=== PATIENT | female | born 1990 | race Caucasian/White ===

== ENCOUNTER 2016-12-14 09:23 | Emergency (ER) | payer OTHER ==
[2016-12-14 10:28] VITALS: BP 118/78
--- NOTE | 2016-12-14 11:45 | UC ---
Abdominal Pain Female HPI - HPI Summary HPI Summary: PT HERE WITH 5 DAYS OF VOLUMINOUS(10-20/DAYS), MALODOROUS, WATERY DIARRHEA FOR 6 DAYS. PT ALSO REPORTS MYALGIAS, DIFFUSE ABD CRAMPING, FATIGUE AND VOMITING X 3 THAT HAPPENED LAST NIGHT. SX STARTED 3 DAYS AFTER FINISHING A COURSE OF KEFLEX FOR AN ABSCESS. PT DENIES RECENT TRAVEL, CAMPING, EXPOSURE TO FARM ANIMALS, REPTILIAN PETS OR WELL WATER. - History of Current Complaint Chief Complaint: UCGeneralIllness Stated Complaint: STOMACH ACHE Time Seen by Provider: 12/14/16 11:09 Hx Obtained From: Patient Hx Last Menstrual Period: 12/12/16 Onset/Duration: Sudden Onset, Lasting Days - 6, Still Present Severity Initially: Moderate Severity Currently: Moderate Pain Intensity: 5 Location: Diffuse - WORST IN THE SUPRAPUBIC AND LLQ Radiates: No Character: Cramping Aggravating Factor(s): Food Alleviating Factor(s): Nothing Associated Signs and Symptoms: Positive: Back Pain - ACHY, Nausea - NONE CURRENTLY, Vomiting - LAST NIGHT, Diarrhea. Negative: Diaphoresis, Fever, Cough , Chest Pain, Dizzy, Constipation, Blood in Stool, Urinary Symptoms, Decreased Appetite, Vaginal Bleeding, Vaginal Discharge Allergies/Adverse Reactions: Allergies Allergy/AdvReac Type Severity Reaction Status Date / Time No Known Allergies Allergy Verified 09/17/16 13:05 PMH/Surg Hx/FS Hx/Imm Hx Endocrine History Of: Reports: Thyroid Disease, Hypothyroidism - Surgical History Surgical History: Yes Surgery Procedure, Year, and Place: tubal occlusion - Family History Known Family History: Positive: Cardiac Disease, Hypertension, Diabetes, Other - THYROID - Social History Alcohol Use: None Substance Use Type: None Smoking Status (MU): Light Every Day Tobacco Smoker Type: Cigarettes Length of Time of Smoking/Using Tobacco: age 18 Review of Systems Constitutional: Fatigue Skin: Negative Eyes: Negative ENT: Negative Respiratory: Negative Cardiovascular: Negative Gastrointestinal: Abdominal Pain - DIFFUSE CRAMPING, Vomiting, Diarrhea Genitourinary: Negative Motor: Negative Neurovascular: Negative Musculoskeletal: Negative Neurological: Headache - MILD Psychological: Negative All Other Systems Reviewed And Are Negative: Yes Physical Exam Triage Information Reviewed: Yes Appearance: Well-Appearing, No Pain Distress, Well-Nourished Vital Signs: Initial Vital Signs Temp 99.5 F 02/02/17 10:22 Pulse 106 12/14/16 10:22 Resp 16 12/14/16 10:22 BP 118/78 12/14/16 10:22 Pulse Ox 99 12/14/16 10:22 Vital Signs Reviewed: Yes Eyes: Positive: Conjunctiva Clear. Negative: Discharge ENT: Positive: Hearing grossly normal. Negative: Muffled/hoarse voice Neck exam: Normal Neck: Positive: Supple, Nontender Respiratory: Positive: Lungs clear, Normal breath sounds, No respiratory distress, No accessory muscle use Cardiovascular: Positive: RRR, No Murmur Abdomen Description: Positive: Soft. Negative: Nontender - DIFFUSE TENDENESS, WORST IN LLQ, SPARRIG THE RLQ., CVA Tenderness (R), CVA Tenderness (L), Distended, Guarding, McBurney's Point Tenderness Bowel Sounds: Positive: Hyperactive Musculoskeletal Exam: Normal Neurological: Positive: Alert, Muscle Tone Normal Psychological: Positive: Age Appropriate Behavior Skin Exam: Normal Abd Pain Female Course/Dx - Differential Dx/Diagnosis Differential Diagnosis: Irritable Bowel Syndrome, , Urinary Tract Infection, Other - GASTROENTERITIS, C. DIFF Provider Diagnoses: DIARRHEA Discharge - Discharge Plan Condition: Stable Disposition: HOME Patient Education Materials: Acute Diarrhea (ED), Abdominal Pain (ED) Referrals: Marium Zhou MD [Primary Care Provider] - If Needed Additional Instructions: WE HAVE OBTAINED A STOOL SPECIMEN TO LOOK FOR ANY TREATABLE KIND OF DIARRHEA. YOU WILL BE CALLED WITH ABNORMAL RESULTS.
== END 2016-12-14 12:06 | disposition home or self-care (01) ==
LOC: UCCORT 09:23
DX: R19.7 Diarrhea, unspecified (principal); R10.32 Left lower quadrant pain; R10.2 Pelvic and perineal pain; E03.9 Hypothyroidism, unspecified; F17.210 Nicotine dependence, cigarettes, uncomplicated; Z32.02 Encounter for pregnancy test, result negative
CPT/HCPCS: 81025; 83630; 87086; 87493; 99212; G0463